=== PATIENT | male | born 1945 | race Caucasian/White ===

== ENCOUNTER 2017-06-30 12:09 | Emergency (ER) | payer OTHER, SELFPAY | END 2017-06-30 14:30 | disposition home or self-care (01) | PROVIDERS: Emergency Provider Emergency Medicine; PCP Family Medicine; Visit Provider Emergency Medicine | DX: R50.9 Fever, unspecified (principal) | CPT/HCPCS: 36415; 71020; 71046; 80053; 81001; 83605; 85025; 87040; 96360; 99058; 99284 ==

== ENCOUNTER → 2017-09-05 08:15 | Outpatient (CLI) | payer OTHER, SELFPAY ==
--- NOTE | 2017-09-05 | DI.CT.S_ITS ---
PROCEDURE: CT CHEST W CON INDICATIONS: 71 year-old man with mediastinal adenopathy. TECHNIQUE: After the administration of intravenous contrast, 5 mm thick sections acquired from the pulmonary apices to the posterior costophrenic angles. 7 mm thick coronal and sagittal MIP reformats were acquired. For radiation dose reduction, the following was used: automated exposure control, adjustment of mA and/or kV according to patient size. COMPARISON: [facility], RG, NM BONE SCAN WHOLE BODY, 05/29/2001, 9:55. [facility], CR, CHEST 2 VIEW, 06/30/2017, 12:51. [facility], CT, ABDOMEN WITH CONTRAST, 03/13/2017, 14:32. FINDINGS: Image quality: Excellent. Lungs and pleura: A 5 mm groundglass nodule is noted in the right middle lobe. Multiple calcified lung nodules are present bilaterally, consistent with old granulomas. No acute air space opacities. No pleural effusions or pneumothorax. Central and peripheral airways are patent and normal in caliber. Mediastinum: There is a 1.3 cm right paratracheal lymph node and a 1 cm subcarinal lymph node. No enlarged hilar lymph node. Heart size is normal. No pericardial effusion. Thoracic aorta and central pulmonary arteries are normal in size. Esophagus is normal in caliber. No hiatal hernia. Bones and chest wall: A Port-A-Cath is noted in the right anterior chest. No suspicious bony lesions. No vertebral body compression fractures. No axillary or supraclavicular adenopathy by size criteria. Thyroid gland is normal. Abdomen: There are multiple calcific foci in spleen, consistent with sequelae of remote granulomatous disease. Visualized upper abdominal solid organs appear normal. Upper abdominal bowel loops are normal in caliber. IMPRESSION: 1. Mild mediastinal lymphadenopathy. This finding is nonspecific and may be secondary to infectious, inflammatory or neoplastic etiology. Recommend clinical correlation and follow up. 2. There is a 5 mm groundglass nodule in the right middle lobe. Please see enclosed followup right lung. 3. Calcified lung nodules and foci of calcification in spleen are likely sequelae of remote granuloma infections. Fleischner Society criteria for SUB-SOLID lung nodule followup. Solitary pure ground-glass nodules5 mm or lessNo followup needed. >5 mm3 mo follow-up CT to confirm persistence. Then annual CT for 3 years. Part-solid nodules3 mo follow-up CT to confirm persistence. If persistent with solid component <5 mm, annual CT for at least 3 years. If solid component is 5 mm or more, biopsy or surgical resection. Consider PET-CT for lesions > 10 mm. Multiple sub-solid nodulesPure ground glass nodules [address] at 2 and 4 years. Pure ground glass nodules >5 mm without dominant lesion. [address] to confirm persistence, then annual followup CT for at least 3 years. Dominant nodule(s) with part-solid or solid component. [address] to confirm persistence. If persistent, consider biopsy or surgical resection, daphne if lesions have >5 mm solid component. Dictated by: Manisha Tucker M.D. on 09/05/2017 at 10:00 Approved by: Manisha Tucker M.D. on 09/05/2017 at 10:14
== END ==
PROVIDERS: PCP Family Medicine; Visit Provider Internal Medicine Critical Care Medicine
DX: R59.0 Localized enlarged lymph nodes (principal); R91.1 Solitary pulmonary nodule
CPT/HCPCS: 71260; Q9967

== ENCOUNTER → 2021-09-21 07:34 | Outpatient (CLI) | payer MEDICARE, BC, SELFPAY ==
--- NOTE | 2021-09-21 07:42 | DI.CT.S_ITS ---
PROCEDURE: CT ABDOMEN PELVIS W CON INDICATIONS: Other acute postprocedural pain TECHNIQUE: After the administration of oral and intravenous contrast, axial sections were acquired from the lung bases to the pubic symphysis. Coronal and sagittal reformats were performed. For radiation dose reduction, the following was used: automated exposure control, adjustment of mA and/or kV according to patient size. COMPARISON:[facility] Facility, RG, CT THORAX/ ABD/ PELVIS WITH CONTRAST, 06/21/2021, 15:38. FINDINGS: Image quality: Excellent. Lung bases: Platelike atelectasis is present in the dependent lung bases bilaterally. Previously visualized 4 mm right middle lobe pulmonary nodule is less conspicuous on the current study (series 3/image 14). Heart: No significant findings. ABDOMEN: Liver: Normal size and enhancement. There is a small amount of low-density free perihepatic fluid. Gallbladder: Unremarkable. Biliary ducts: Unremarkable. Pancreas: Unremarkable. Spleen: The spleen measures 12.8 cm in length. 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 Adrenal Glands: Unremarkable. Kidneys and Ureters: Unremarkable. Stomach and Bowel: Patient is status post partial gastrectomy. Age jejunostomy tube is present. Visualized portions of the gastric remanent and small bowel demonstrate normal caliber and wall thickness. The colon demonstrates normal caliber and wall thickness. There are scattered sigmoid diverticula. No evidence for diverticulitis. The appendix is not visualized; however there is no discrete right lower quadrant fluid or fat stranding to suggest acute appendicitis. Peritoneum: There is a small amount of low-density peritoneal fluid. Ventral Wall: No hernia. Abdominal Nodes: No retroperitoneal or mesenteric adenopathy by size criteria. Vessels: Aorta and inferior vena cava are normal in size. There are scattered atheromatous calcifications throughout the aorta and iliac arteries bilaterally. PELVIS: Pelvic Organs: Unremarkable. Bladder: Unremarkable. Pelvic Nodes: No enlarged lymph nodes. Miscellaneous: No inguinal hernias are seen. Bones: Unremarkable. IMPRESSION: 1. No acute intra-abdominal findings. Patient is status post partial gastrectomy and jejunal feeding tube placement. No extravasation of contrast at the feeding tube or other findings to suggest extra enteric leakage. 2. Trace low-density free perihepatic fluid and trace free fluid in the pelvis which is new when compared with the prior CT dated June 21, 2021. Dictated by: Andie Calvo M.D. on 09/21/2021 at 13:59 Approved by: Andie Calvo M.D. on 09/21/2021 at 14:07
[2021-09-21 08:16] LABS: Alanine Aminotransferase 40 IU/L (<50); Albumin 3.9 g/dL (3.5-5.0); Albumin Globulin Ratio 1.4 (1.0-2.8); Alkaline Phosphatase 106 U/L (38-126); Aspartate Aminotransferase 37 IU/L (17-59); BUN Creatinine Ratio 25.4 (6-22); Bilirubin Total 0.7 mg/dL (0.2-1.3); Blood Urea Nitrogen 16 mg/dL (9-20); Calcium 8.9 mg/dL (8.4-10.2); Carbon Dioxide 32 mmol/L (22-32); Chloride 99 mmol/L (98-107); Estimated Glomerular Filt Rate > 60 mL/min (>60); Globulin 2.8 g/dL (1.7-4.1); Glucose 120 mg/dL (80-110); HEMOLYSIS < 15 (0-50); Potassium 4.5 mmol/L (3.4-5.1); Sodium 136 mmol/L (137-145); Total Protein 6.7 g/dL (6.3-8.2)
[2021-09-21 08:46] LABS: Add Manual Diff / Slide Review NO; Basophils Absolute Auto 0 /uL (0-100); Basophils Percent Auto 0.7 % (0-2); Eosinophils Absolute Auto 200 /uL (0-450); Hematocrit 35.1 % (41-53); Lymphocytes Absolute Auto 2000 /uL (1100-4500); Lymphocytes Percent Auto 39.7 % (25-40); Mean Corpuscular HGB Conc 34.3 % (30-36); Mean Corpuscular Hemoglobin 31.7 PG (26-34); Mean Corpuscular Volume 92.4 fL (80-100); Monocytes Absolute Auto 600 /uL (0-900); Monocytes Percent Auto 12.6 % (3-14); Neutrophils Absolute Auto 2200 /uL (1500-7000); Platelet Count 158 X10^3/uL (150-400); Red Cell Distribution Width 14.9 % (11.6-14.8); White Blood Cell Count 5.1 X10^3/uL (4.5-11.0)
[2021-09-21 09:20] LABS: Free T4, Direct Thyroxine 0.93 ng/dL (0.78-2.19)
[2021-09-21 13:43] LABS: Thyroid Stimulating Hormone 2.26 uIU/mL (0.47-4.68)
== END ==
PROVIDERS: PCP Family Medicine; Referring Provider Nurse Practitioner Acute Care; Visit Provider Nurse Practitioner Acute Care
DX: C16.2 Malignant neoplasm of body of stomach (principal); G89.18 Other acute postprocedural pain; R10.84 Generalized abdominal pain
CPT/HCPCS: 36415; 74177; 80053; 84439; 84443; 85025

== ENCOUNTER → 2022-12-06 12:31 | Outpatient (CLI) | payer MEDICARE, BC, SELFPAY ==
--- NOTE | 2022-12-06 | DI.US.S_ITS ---
PROCEDURE: US ABDOMEN LIMITED INDICATIONS: ASCITES - EVALUATION FOR PARACENTESIS. TECHNIQUE: Real-time focused scanning was performed of the abdomen, with image documentation. COMPARISON: CT, CT ABDOMEN PELVIS W CON, 09/21/2021, 8:53. FINDINGS: Minimal ascites present within the lower pelvis and given the small volume, no paracentesis was performed. IMPRESSION: Minimal ascites and no paracentesis was performed. Dictated by: Saman Up RRKarla Interpreted: Crow Seth MD on 12/06/2022 at 13:25 Transcribed by: KAREN on 12/06/2022 at 13:26 Approved by: Crow Seth M.D. on 12/07/2022 at 8:21
== END ==
PROVIDERS: PCP Family Medicine; Referring Provider Nurse Practitioner Adult Health; Visit Provider Nurse Practitioner Adult Health
DX: C16.9 Malignant neoplasm of stomach, unspecified (principal); R18.8 Other ascites
CPT/HCPCS: 76705

== ENCOUNTER → 2022-12-18 10:55 | Outpatient (CLI) | payer OTHER, MEDICARE, BC, SELFPAY ==
--- NOTE | 2022-12-18 | DI.US.S_ITS ---
PROCEDURE: US PARACENTESIS INDICATIONS: Malignant neoplasm of stomach, unspecified TECHNIQUE: The indications, alternatives, benefits, risks, and complications of the procedure were explained to the patient. Written informed consent was obtained and placed in the chart. The abdomen and pelvis were examined sonographically, and an appropriate site was chosen for paracentesis. The skin was prepared and draped in the usual sterile fashion, and 1% lidocaine was infiltrated from the skin down through the peritoneal surface. A 19-gauge catheter-covered needle was then introduced into the peritoneal space, the catheter was advanced and the needle was withdrawn, and thereafter peritoneal fluid was withdrawn. The catheter was then removed and a dressing was applied. The fluid was discarded if the clinician did not order diagnostic testing of the fluid. COMPARISON: None. FINDINGS: Access site: Right lower quadrant Needle: One-Step centesis catheter with introducer needle. Fluid volume and description: 2700 mL clear yellow fluid Fluid sent for diagnostic testing: Not requested Medications: 1% lidocaine for local anaesthesia. Complications: None. IMPRESSION: Successful ultrasound-guided paracentesis. Dictated by: Clay Cronin M.D. on 12/18/2022 at 12:17 Approved by: Clay Cronin M.D. on 12/18/2022 at 12:18
== END ==
PROVIDERS: PCP Family Medicine; Referring Provider Nurse Practitioner Adult Health; Visit Provider Nurse Practitioner Adult Health
DX: C16.9 Malignant neoplasm of stomach, unspecified (principal)
CPT/HCPCS: 49083